=== PATIENT | male | born 1965 | race Caucasian/White ===

== ENCOUNTER 2025-02-27 10:00 | Outpatient (RCR) | payer OTHER, SELFPAY ==
--- NOTE | 2024-11-29 11:52 | OPREHPOC ---
Outpatient Therapy Plan of Care This is a Multidisciplinary Plan of Care that may contain components documented by all disciplines (PT, OT, and ST.) PT Problem 1 PT Problem #1 Knowledge Deficit PT Goal 1 Goal / Goal Update Patient to demonstrate independence with HEP for improved self-reliance of symptom management. Target Visit 5 PT Problem 2 PT Problem #2 Impaired Strength PT Goal 1 Goal / Goal Update 1. Patient to perform 5xSTS from 19 sec to 15 sec to demonstrate an increase in B LE functional strength. 2. Patient to demonstrate L LE strength >=5/5 for improved functional stability required for ADLs. Target Visit 10 PT Problem 3 PT Problem #3 Impaired Endurance PT Goal 1 Goal / Goal Update Patient to improve distance ambulated during 2MWT from 210 feet to 300 feet to demonstrate an improvement in ADL endurance. Target Visit 10 PT Problem 4 PT Problem #4 Impaired Functional Mobility PT Goal 1 Goal / Goal Update 1. Patient to improve confidence and understanding of gait mechanics and stair negotiation with SPC to improve community navigation. 2. Patient to improve gait mechanics and stair negotiation to mild noted deficit and reciprocal pattern for improved community navigation. Target Visit 10
--- NOTE | 2024-11-29 11:52 | PTOPEVAL1 ---
Assessment and note entered by Brigitte Subramanian, PT Evaluation Information Assessment Status Evaluation Diagnosis CVA I63.9 ICD-10 Condition Codes (PT) Abnormalities of gait and mobility R26.9 Onset 11/10/24 Subjective Information Patient reports having continued L LE cramping and weakness for 5-7 days before going to the ED. Upon arrival and head CT he had a subacute infarct in the R parietal lobe. He went to inpatient rehab for 10 days after the initial injury on 11/10. Patient reports living with his son prior to injury and his daughter after. There are 5 stairs to enter the home with rails on both sides. 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 Pt. would like to return to work and normal life as soon as possible . He reports being highly motivated to participate in therapy. His biggest complaint is cramping in the L LE and difficulty with walking and unsteadiness. Reported Pain Level Pain Score 0: Self Report Pain Score 0: Self Report Assessment PT Clinical Summary Pt is a 59 year old male who presents to physical therapy post subacute infarct of R parietal lobe. Pt demonstrates the associated L LE weakness and increased tone, decreased endurance, gait deficit, and decreased safety that limit their ability to perform ADLs and return to work. Pt will benefit from skilled physical therapy to address the above listed deficits and return to PLOF. HEP instructed and written handout provided, EX tolerated well with no adverse effects to note post-session. Pt was educated on importance of adherence to HEP. Pt was also educated on anatomy, prognosis, home modalities, and PT POC. Plan of Care Interventions Gait Training,Manual Therapy,Neuro Re-education, Therapeutic Activities,Therapeutic Exercise PT Services Indicated Yes Treatment Frequency and 2x/wl for 10 visits Duration These treatments will address the objective and functional deficits as defined above. The patient will be advanced safely and appropriately in order for the patient to progress towards his/her prior level of function. Additional exercises will be introduced and as well as a comprehensive home exercise program upon discharge, if needed, ?to ensure carryover of functional gains achieved in the clinic. This treatment plan has been reviewed and agreement upon by the patient.
--- NOTE | 2024-11-29 13:37 | OTOPEVAL1 ---
Assessment and note entered by Linda Plummer OT Evaluation Information Assessment Status Evaluation Assessment Status Evaluation Diagnosis CVA Onset 11/14/24 Subjective Information Pt. reports last Wednesday night 11/14/24, he woke up from sleeping with L sided changes, went to hospital to find he had had stroke in R side of brain. Pt. initially reported he did not got o rehab, then later states he was in rehab for 10 days. 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 Pt. reports he is fully independent, doesn't drive typically, but lives with his daughter who drives him or he takes the bus. Pt. reports no pain, but numbness on L side that feels awkward. Pt. does not typically use a walker, but has been using a front wheeled walker one since he left hospital. Pt. is typically active and reports he would like to be able to return to work if he decides to, go fishing, and return to overall independence. Reported Pain Level Pain Score 0: Self Report Pain Score 0: Self Report Assessment OT Clinical Summary Pt. is 59 year old M, referred to outpatient occupational therapy services after experiencing a R sided CVA on 11/14/24. Pt. previously active and working in a [employer] assembly line, moving and opening boxes and pallets, otherwise independent in ADLs/IADLs/and functional mobility without use of a mobility device. Pt. presents with decreased strength, coordination, and dexterity, as demonstrated by dynamometer lacing presser strength of 34.3 lbs in L hand, compared to 61 lbs in R and 9 hole peg test requiring 253 seconds to complete with L hand, compared to 26 seconds with R. Pt. will benefit from skilled OT services to facilitate overall increase strength, coordination, and dexterity in L UE for return to greater capacity to participate independently in functional activity Plan of Care Interventions Therapeutic Exercise,Manual Therapy,Neuro Re- education,Therapeutic Activities,Sensory Integrative Techniques,Self-Care/Home Management OT Services Indicated Yes Treatment Frequency and 1 x /week for 8 visits Duration These treatments will address the objective and functional deficits as defined above. The patient will be advanced safely and appropriately in order for the patient to progress towards his/her prior level of function. Additional exercises will be introduced and as well as a comprehensive home exercise program upon discharge, if needed, ?to ensure carryover of functional gains achieved in the clinic. This treatment plan has been reviewed and agreement upon by the patient.
--- NOTE | 2024-11-29 13:38 | OPREHPOC ---
Outpatient Therapy Plan of Care This is a Multidisciplinary Plan of Care that may contain components documented by all disciplines (PT, OT, and ST.) PT Problem 1 PT Problem #1 Knowledge Deficit PT Goal 1 Goal / Goal Update Patient to demonstrate independence with HEP for improved self-reliance of symptom management. Target Visit 5 PT Problem 2 PT Problem #2 Impaired Strength PT Goal 1 Goal / Goal Update 1. Patient to perform 5xSTS from 19 sec to 15 sec to demonstrate an increase in B LE functional strength. 2. Patient to demonstrate L LE strength >=5/5 for improved functional stability required for ADLs. Target Visit 10 PT Problem 3 PT Problem #3 Impaired Endurance PT Goal 1 Goal / Goal Update Patient to improve distance ambulated during 2MWT from 210 feet to 300 feet to demonstrate an improvement in ADL endurance. Target Visit 10 PT Problem 4 PT Problem #4 Impaired Functional Mobility PT Goal 1 Goal / Goal Update 1. Patient to improve confidence and understanding of gait mechanics and stair negotiation with SPC to improve community navigation. 2. Patient to improve gait mechanics and stair negotiation to mild noted deficit and reciprocal pattern for improved community navigation. Target Visit 10 OT Problem 1 OT Problem #1 Knowledge Deficit OT Goal 1 Goal / Goal Update Pt. will demonstrate independence in HEP Target Visit 8 OT Problem 2 OT Problem #2 Impaired Strength OT Goal 1 Goal / Goal Update Pt. will demonstrate increased of overall as evidenced by increase of 1 MMT grade and 10lb gross dynamometer strength Target Visit 16 OT Problem 3 OT Problem #3 Impaired Coordination OT Goal 1 Goal / Goal Update Pt. will demonstrate increased coordination and fine motor control, as demonstrated by improving 9 -hole peg test score to < 60 seconds without dropping any pegs Target Visit 16
--- NOTE | 2024-12-15 14:19 | PCPTNOTE ---
pt called and canceled today's appt due to not having transportation.
--- NOTE | 2024-12-18 10:40 | PCPTNOTE ---
pt called to cancel his appt this date due to lack of transportation
--- NOTE | 2024-12-20 10:00 | PCPTNOTE ---
Cancelled visit due to transportation issue, per front office. AKS
--- NOTE | 2025-01-15 10:07 | PCPTNOTE ---
pt contacted front office via online portal, cancelling today appt. No reason provided at this time
--- NOTE | 2025-01-17 11:50 | PCOTNOTE ---
Pt.'s family called to cancel on this date and for scheduled appointment on Wednesday01/15/25 due pt. illness.
--- NOTE | 2025-01-22 12:42 | PCPTNOTE ---
pt daughter gavi called to cancel pt appt, stated his insurance ride was scheduled for the incorrect time
--- NOTE | 2025-02-27 11:21 | OTOPPROG ---
Assessment and note entered by Linda Plummer, OT Evaluation Information Assessment Status Progress Diagnosis CVA ICD-10 Condition Codes (OT) Joint stiffness of right hand M25.641,Joint stiffness of left hand M25.642,Generalized muscle weakness M62.81 Onset 11/14/24 Subjective Information Pt. returning to therapy for reevaluation, after leaving last treatment and going to hospital 2024. Pt. reports being hospitalized for 5 days having stent placed due to blockage, and returning home day after procedure. Pt. has since returned to daily activity. Pt. reports continued numbness, which he was experiencing during last treatment and continued stiffness in neck, and stiffness and tightness in L UE. Pt. reports no consistently new difficulties, but does report frustration in set back from initial progress. Pt. reports difficulty with management of small items such as pills, but often compensates for L sided limitations with use of R dominant UE. 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 Pt. reports he is fully independent in ADLs. Pt. is typically active and reports he would like to be able to return to work if he decides to, go fishing, and return to overall independence. Assessment OT Clinical Summary Pt. is 59 year old M, in initially referred to outpatient occupational therapy services after experiencing a R sided CVA on 11/14/24. Pt. presents for reevaluation after attending therapy treatment on 01/24/2025, during which he was sent to hospital, resulting in hospitalization for internal carotid stent placement. Pt. returns on this date with increased flexor tone with functional movement and continued limitations in L UE strength and fine motor control and dexterity. Pt. is committed to improvement and will benefit from skilled OT services to facilitate overall increase strength, coordination, and dexterity in L UE for return to greater capacity to participate independently in functional activity. Plan of Care Interventions Therapeutic Exercise,Manual Therapy,Neuro Re- education,Therapeutic Activities,Sensory Integrative Techniques,Self-Care/Home Management OT Services Indicated Yes Treatment Frequency and 2x /week for 8 visits Duration These treatments will address the objective and functional deficits as defined above. The patient will be advanced safely and appropriately in order for the patient to progress towards his/her prior level of function. Additional exercises will be introduced and as well as a comprehensive home exercise program upon discharge, if needed, ?to ensure carryover of functional gains achieved in the clinic. This treatment plan has been reviewed and agreement upon by the patient.
--- NOTE | 2025-02-27 11:21 | OPREHPOC ---
Outpatient Therapy Plan of Care This is a Multidisciplinary Plan of Care that may contain components documented by all disciplines (PT, OT, and ST.) PT Problem 1 PT Problem #1 Knowledge Deficit PT Goal 1 Goal / Goal Update Patient to demonstrate independence with HEP for improved self-reliance of symptom management. Target Visit 5 PT Problem 2 PT Problem #2 Impaired Strength PT Goal 1 Goal / Goal Update 1. Patient to perform 5xSTS from 19 sec to 15 sec to demonstrate an increase in B LE functional strength. 2. Patient to demonstrate L LE strength >=5/5 for improved functional stability required for ADLs. Target Visit 10 PT Problem 3 PT Problem #3 Impaired Endurance PT Goal 1 Goal / Goal Update Patient to improve distance ambulated during 2MWT from 210 feet to 300 feet to demonstrate an improvement in ADL endurance. Target Visit 10 PT Problem 4 PT Problem #4 Impaired Functional Mobility PT Goal 1 Goal / Goal Update 1. Patient to improve confidence and understanding of gait mechanics and stair negotiation with SPC to improve community navigation. 2. Patient to improve gait mechanics and stair negotiation to mild noted deficit and reciprocal pattern for improved community navigation. Target Visit 10 OT Problem 1 OT Problem #1 Knowledge Deficit OT Goal 1 Goal / Goal Update Pt. will demonstrate independence in HEP Progress note 02/27/25 1) partially met, lapse in HEP since last treatment, continue with goal Target Visit 8 Progress Partially Met OT Problem 2 OT Problem #2 Impaired Strength OT Goal 1 Goal / Goal Update Pt. will demonstrate increased of overall as evidenced by increase of 1 MMT grade and 10lb gross dynamometer strength Progress note 02/27/2025 1) goal not met, continue with goal Target Visit 16 Progress Not Met OT Problem 3 OT Problem #3 Impaired Coordination OT Goal 1 Goal / Goal Update Pt. will demonstrate increased coordination and fine motor control, as demonstrated by improving 9 -hole peg test score to < 60 seconds without dropping any pegs Progress note 02/27/25 1) goal not met, continue with goal Target Visit 16 Progress Not Met
== END 2025-02-27 12:43 | disposition home or self-care (01) ==
LOC: ANHOT 10:00
PROVIDERS: PCP Physician Assistant Medical; Visit Provider Physician Assistant Medical
DX: I69.354 Hemiplegia and hemiparesis following cerebral infarction affecting left non-dominant side (principal); I69.398 Other sequelae of cerebral infarction; M62.81 Muscle weakness (generalized); R27.8 Other lack of coordination
CPT/HCPCS: 97110; 97112; 97116; 97162; 97165; 97530

== ENCOUNTER 2025-05-11 14:45 | Outpatient (RCR) | payer OTHER, SELFPAY ==
--- NOTE | 2025-03-01 11:25 | OPREHPOC ---
Outpatient Therapy Plan of Care This is a Multidisciplinary Plan of Care that may contain components documented by all disciplines (PT, OT, and ST.) PT Problem 1 PT Problem #1 Knowledge Deficit PT Goal 1 Goal / Goal Update Patient to demonstrate independence with HEP for improved self-reliance of symptom management. Target Visit 5 Progress Met PT Problem 2 PT Problem #2 Impaired Strength PT Goal 1 Goal / Goal Update 1. Patient to perform 5xSTS from 19 sec to 15 sec to demonstrate an increase in B LE functional strength. 2. Patient to demonstrate L LE strength >=5/5 for improved functional stability required for ADLs. 03/01/25: Met goal 1, progressing to goal 2 Target Visit 10 Progress Partially Met PT Problem 3 PT Problem #3 Impaired Endurance PT Goal 1 Goal / Goal Update Patient to improve distance ambulated during 2MWT from 210 feet to 300 feet to demonstrate an improvement in ADL endurance. Target Visit 10 Progress Met PT Problem 4 PT Problem #4 Impaired Functional Mobility PT Goal 1 Goal / Goal Update 1. Patient to improve confidence and understanding of gait mechanics and stair negotiation with SPC to improve community navigation. 2. Patient to improve gait mechanics and stair negotiation to mild noted deficit and reciprocal pattern for improved community navigation. 03/01/25: Continuing to work on reciprocal pattern Target Visit 10 Progress Partially Met OT Problem 1 OT Problem #1 Knowledge Deficit OT Goal 1 Goal / Goal Update Pt. will demonstrate independence in HEP Progress note 02/27/25 1) partially met, lapse in HEP since last treatment, continue with goal Target Visit 8 Progress Partially Met OT Problem 2 OT Problem #2 Impaired Strength OT Goal 1 Goal / Goal Update Pt. will demonstrate increased of overall as evidenced by increase of 1 MMT grade and 10lb gross dynamometer strength Progress note 02/27/2025 1) goal not met, continue with goal Target Visit 16 Progress Not Met OT Problem 3 OT Problem #3 Impaired Coordination OT Goal 1 Goal / Goal Update Pt. will demonstrate increased coordination and fine motor control, as demonstrated by improving 9 -hole peg test score to < 60 seconds without dropping any pegs Progress note 02/27/25 1) goal not met, continue with goal Target Visit 16 Progress Not Met
--- NOTE | 2025-03-01 11:25 | PTOPPROG ---
Assessment and note entered by Krish Dupree, PT Evaluation Information Assessment Status Progress Diagnosis CVA I63.9 ICD-10 Condition Codes (PT) Abnormalities of gait and mobility R26.9 Onset 11/10/24 Subjective Information Patient reports that he had a stent put in 2 weeks ago Wednesday. Reports that he is doing well overall after that. Feels he is doing better walking around and is using cane sporadically. He is not using the cane in his house and he feels he is doing a lot better. He still has some concerns with numbness and dizziness when he closes his eyes. He feels when his eyes are open he is doing a little better overall. He has been struggling to really train his balance in the home. Assessment PT Clinical Summary Patient has seen excellent progress in objective measures and functional outcomes. Continues to present with some balance deficits and minor weakness which is exacerbated with eyes closed. 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 Plan of Care Interventions Gait Training,Manual Therapy,Neuro Re-education, Therapeutic Activities,Therapeutic Exercise PT Services Indicated Yes Treatment Frequency and 1x.week for 4 visits Duration These treatments will address the objective and functional deficits as defined above. The patient will be advanced safely and appropriately in order for the patient to progress towards his/her prior level of function. Additional exercises will be introduced and as well as a comprehensive home exercise program upon discharge, if needed, ?to ensure carryover of functional gains achieved in the clinic. This treatment plan has been reviewed and agreement upon by the patient.
--- NOTE | 2025-03-20 15:14 | PCPTNOTE ---
Pt canceled PT appt today due to [employer] ride stating they had to pick him up at 3pm instead of scheduled 4pm.
--- NOTE | 2025-03-23 11:57 | PCOTNOTE ---
Pt. called to cancel on this date due to placement of heart monitor yesterday, which he reports was too fatiguing.
--- NOTE | 2025-04-04 17:26 | OTOPPROG ---
Assessment and note entered by Linda Plummer, OT Evaluation Information Assessment Status Progress Diagnosis CVA ICD-10 Condition Codes (OT) Joint stiffness of right hand M25.641,Joint stiffness of left hand M25.642,Generalized muscle weakness M62.81 Onset 11/14/24 Subjective Information Pt. reports I'm just frustrated. I woke up this morning and I just felt frustrated. It seems like its just getting harder. Pt. states that the more he tries to stretch his UE, the more it hurts and feels stiff. Pt. reports continued numbness, stiffness and tightness in L UE. Pt. reports difficulty with management of small items such as pills, but often compensates for L sided limitations with use of R dominant UE independence. Assessment OT Clinical Summary Pt. is 59 year old M, in initially referred to outpatient occupational therapy services after experiencing a R sided CVA on 11/14/24, and subsequent hospitalization on 01/24/2025 with internal carotid stent placement due to increasing stroke symptoms. Pt. demonstrated L UE ROM WFL, but with activity displays increased flexor tone with functional movement and continued limitations in L UE strength and fine motor control and dexterity, requiring 510 seconds to complete 9 hole peg test with L UE. Pt. is committed to improvement, demonstrating follow through with therapist education and suggestions, and will benefit from skilled OT services to facilitate overall increase strength, coordination, and dexterity in L UE for return to greater capacity to participate independently in functional activity. Plan of Care Interventions Therapeutic Exercise,Manual Therapy,Neuro Re- education,Therapeutic Activities,Sensory Integrative Techniques,Self-Care/Home Management OT Services Indicated Yes Treatment Frequency and 2x /week for 8 visits Duration These treatments will address the objective and functional deficits as defined above. The patient will be advanced safely and appropriately in order for the patient to progress towards his/her prior level of function. Additional exercises will be introduced and as well as a comprehensive home exercise program upon discharge, if needed, ?to ensure carryover of functional gains achieved in the clinic. This treatment plan has been reviewed and agreement upon by the patient.
--- NOTE | 2025-04-23 14:34 | PCOTNOTE ---
Patient called & cancelled scheduled appointment this date due to not having transportation.
--- NOTE | 2025-05-08 14:40 | OPREHPOC ---
Outpatient Therapy Plan of Care This is a Multidisciplinary Plan of Care that may contain components documented by all disciplines (PT, OT, and ST.) PT Problem 1 PT Problem #1 Knowledge Deficit PT Goal 1 Goal / Goal Update Patient to demonstrate independence with HEP for improved self-reliance of symptom management. 05-08-25 d/c goal met Target Visit 5 Progress Met PT Problem 2 PT Problem #2 Impaired Strength PT Goal 1 Goal / Goal Update 1. Patient to perform 5xSTS from 19 sec to 15 sec to demonstrate an increase in B LE functional strength. 2. Patient to demonstrate L LE strength >=5/5 for improved functional stability required for ADLs. 03/01/25: Met goal 1, progressing to goal 2 05-08-25 d/c goals not met; #1 is 18 seconds and #2 is 4+/5 Target Visit 10 Progress Not Met PT Problem 3 PT Problem #3 Impaired Endurance PT Goal 1 Goal / Goal Update Patient to improve distance ambulated during 2MWT from 210 feet to 300 feet to demonstrate an improvement in ADL endurance. Target Visit 10 Progress Met PT Problem 4 PT Problem #4 Impaired Functional Mobility PT Goal 1 Goal / Goal Update 1. Patient to improve confidence and understanding of gait mechanics and stair negotiation with SPC to improve community navigation. 2. Patient to improve gait mechanics and stair negotiation to mild noted deficit and reciprocal pattern for improved community navigation. 03/01/25: Continuing to work on reciprocal pattern 05-08-25 d/c goals met Target Visit 10 Progress Met OT Problem 1 OT Problem #1 Knowledge Deficit OT Goal 1 Goal / Goal Update Pt. will demonstrate independence in HEP Progress note 02/27/25 1) partially met, lapse in HEP since last treatment, continue with goal Target Visit 8 Progress Partially Met OT Problem 2 OT Problem #2 Impaired Strength OT Goal 1 Goal / Goal Update Pt. will demonstrate increased of overall as evidenced by increase of 1 MMT grade and 10lb gross dynamometer strength Progress note 02/27/2025 1) goal not met, continue with goal Target Visit 16 Progress Not Met OT Problem 3 OT Problem #3 Impaired Coordination OT Goal 1 Goal / Goal Update Pt. will demonstrate increased coordination and fine motor control, as demonstrated by improving 9 -hole peg test score to < 60 seconds without dropping any pegs Progress note 02/27/25 1) goal not met, continue with goal Target Visit 16 Progress Not Met
--- NOTE | 2025-05-08 14:41 | PTOPDC ---
Assessment and note entered by Mayra Combs, PT Assessment Status Discharge Diagnosis CVA I63.9 ICD-10 Condition Codes (PT) Abnormalities of gait and mobility R26.9 Onset 11/10/24 Subjective Information fell about 1 week ago when getting up from sitting , hit my L on the table in front of the chair and fell down; other barrera I am doing good; doing OK with walking, going to the store and stairs are OK ; only thing I have to realize is I need to slow down and be careful. Doing all the exercises at home. Ready to be finished with PT. saw the dr last week because of numbness and tingling in chest and neck. had neck stent put in2 Reported Pain Level Pain Score 0: Self Report Pain Score 0: Self Report Assessment PT Clinical Summary Alex has received 14 PT sessions. With today's reassessment: he is walking without an assistive device; 2 minute walking test distance of 335'; on stairs, able to perform with one hand railing and alternate step pattern; 5 reps sit/stand time of 18 seconds without use of UE's; Tintetti balance score of 22/28; continues to have increase tone of L LE with decreased motor control. He has good awareness of safety and education completed for HEP. The goals were partially met. Discharge PT. He is to continue with his home exercises and activity as tolerated. Plan of Care PT Services Indicated No
== END 2025-05-30 23:59 | disposition home or self-care (01) ==
LOC: ANHOT 14:45
PROVIDERS: PCP Physician Assistant Medical; Visit Provider Physician Assistant Medical
DX: I69.354 Hemiplegia and hemiparesis following cerebral infarction affecting left non-dominant side (principal); I69.398 Other sequelae of cerebral infarction; I63.9 Cerebral infarction, unspecified; M62.81 Muscle weakness (generalized); R27.8 Other lack of coordination
CPT/HCPCS: 97110; 97112; 97116; 97165; 97530